=== PATIENT | female | born 1970 | race Caucasian/White ===

== ENCOUNTER 2016-10-14 15:29 | Emergency (ER) | payer OTHER ==
[2016-10-14] MEDS ORDERED: NS 0.9% 1000 ML* 1,000 ML IV ONE (16:09)
[2016-10-14 16:33] LABS: Hematocrit 42 % (35-47); Hemoglobin 13.8 g/dl (12.0-16.0); Mean Corpuscular HGB Conc 33 g/dl (31-36); Mean Corpuscular Hemoglobin 30 pg (27-31); Mean Corpuscular Volume 91 fL (80-97); Mean Platelet Volume 8 um3 (7.4-10.4); Red Blood Count 4.58 10^6/ul (4.0-5.4); Red Cell Distribution Width 14 % (10.5-15); White Blood Count 10.2 10^3/ul (3.5-10.8)
[2016-10-14 16:58] LABS: Albumin 4.2 g/dL (3.2-5.2); BUN/Creatinine Ratio 17.5 (8-20); C Reactive Protein 1.16 mg/L (< 5.00); Calcium 9.5 mg/dL (8.6-10.3); EGFR African American 65.7 (>60); EGFR Non-African American 51.1 (>60); Globulin 3.1 g/dL (2-4); Potassium 3.4 mmol/L (3.5-5.0); Total Bilirubin 0.4 mg/dL (0.2-1.0); Total Protein 7.3 g/dL (6.4-8.9)
--- NOTE | 2016-10-14 17:02 | RAD ---
Indication: Headaches. CT of the brain was performed without IV contrast. [place] ventricular structures are midline. No midline shift is noted. The extra-axial spaces are unremarkable. There is no evidence of intracranial mass or hemorrhage. Mastoid air cells and paranasal sinuses are grossly unremarkable. IMPRESSION: No intracranial mass or hemorrhage is identified.
--- NOTE | 2016-10-14 17:03 | RAD ---
Indication: Headaches and weakness. CT of the paranasal sinuses was obtained in the axial plane. Coronal and sagittal reconstructed images were obtained. The frontal sinuses are clear. Maxillary sinuses are clear. Sphenoid sinuses are clear. There is mucosal thickening and some mild opacification of the nasal turbinates and anterior ethmoid air cells. There is some obstruction of the right ostiomeatal unit. Nasal septal deviation towards the left is noted. IMPRESSION: There may be some mild chronic sinusitis of the right anterior ethmoid air cells. There is mucosal thickening of the right mid middle turbinate with obstruction of the right ostiomeatal unit. Nasal septal deviation towards the left is noted.
[2016-10-14 17:22] LABS: Magnesium 2.1 mg/dL (1.9-2.7)
[2016-10-14 17:24] LABS: Erythrocyte Sed Rate 10 mm/Hr (0-14)
[2016-10-14 17:28] LABS: Urine Bilirubin Negative (Negative); Urine Glucose Negative (Negative); Urine Nitrite Negative (Negative)
--- NOTE | 2016-10-14 17:29 | ED ---
Headache - HPI Summary HPI Summary: Pt here w/ acute onset AGOSTO w/ dizziness while at work today. 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 Feels her sx are worse as time goes on. She cannot say if dizziness is worse w/ or w/o movement - just feels horrible. Denies focal pain/weakness/numbness/tingling however feels tired/weak in general. Photosensitive and mild nausea. Has bee taking new BP meds x 1 month - started w/ HCTZ however systolics were still in 170's so added lisinopril. She' s had a few episodes of hypotension since but this feels worse than any AGOSTO or low BP she's had thus far. Also admits she's had sinus infection sx x 1+ month. Has had 2 rounds of anbx (doxycyline and levaquin). These have been completed as of 10 days ago now and no relief of sinus sx. Is scheduled to have a CT of sinuses w/ ENT soon. Denies chest pain, SOB, ab pain, vomiting, skin changes, fever, chills. - History Of Current Complaint Hx Obtained From: Patient Hx Last Menstrual Period: ~ 1999 (ablation) <Cheryl Calloway - Last Filed: 10/14/16 19:35> <Ela Oconnor - Last Filed: 10/16/16 13:21> - History Of Current Complaint Chief Complaint: EDDizziness Stated Complaint: HEADACHE Time Seen by Provider: 10/14/16 16:07 - Allergies/Home Medications Allergies/Adverse Reactions: Allergies Allergy/AdvReac Type Severity Reaction Status Date / Time Erythromycin AdvReac Abdominal Verified 05/31/14 13:10 Pain PMH/Surg Hx/FS Hx/Imm Hx Previously Healthy: No - chronic sinus issues Endocrine/Hematology History: Denies: Hx Anticoagulant Therapy, Hx Blood Disorders, Hx Diabetes, Hx Thyroid Disease, Hx Anemia, Hx Unexplained Bleeding, Hx Coagulopothy Cardiovascular History: Reports: Hx Hypertension - currently treated - HCTZ, lisinopril Denies: Hx Atrial Fibrillation, Hx Congenital Heart Disease, Hx Myocardial Infarction, Hx Pacemaker/ICD History: Denies: Hx Dialysis, Hx Renal Disease Sensory History: Denies: Hx Hearing Aid Neurological History: Reports: Hx Headaches - has had imaging in the past for AGOSTO Denies: Hx CVA, Hx Migraine Psychiatric History: Reports: Hx Panic Disorder - ANXIETY - Surgical History Surgery Procedure, Year, and Place: Cholecystectomy, 2010, [facility]. Excess Skin Removal, 2008, [facility]. Gastric Bypass, 2006, [facility]. Tubal Ligation, 1995, [facility]. Tonsillectomy, 1983, [facility] Infectious Disease History: No Infectious Disease History: Denies: Traveled Outside the [place] in Last 30 Days - Social History Occupation: Employed Full-time - nurse Alcohol Use: Rare Hx Substance Use: No Substance Use Type: Reports: None Hx Tobacco Use: No Smoking Status (MU): Never Smoked Tobacco <Cheryl Calloway - Last Filed: 10/14/16 19:35> Review of Systems Constitutional: Other - see HPI Eyes: Other - see HPI ENT: Other - see HPI Negative: Palpitations, Chest Pain Negative: Shortness Of Breath, Cough Positive: Nausea. Negative: Abdominal Pain, Vomiting, Diarrhea Positive: no symptoms reported Negative: Arthralgia, Myalgia, Edema Negative: Rash, Bruising Neurological: Other - see HPI Psychological: Normal All Other Systems Reviewed And Are Negative: Yes <Cheryl Calloway - Last Filed: 10/14/16 19:35> Physical Exam Triage Information Reviewed: Yes Vital Signs On Initial Exam: Initial Vitals Temp Pulse Resp BP Pulse Ox 97.3 F 82 16 126/80 100 10/14/16 15:42 10/14/16 15:42 10/14/16 15:42 10/14/16 15:42 10/14/16 15:42 Vital Signs Reviewed: Yes Appearance: Positive: Pain Distress - pt lying in stretcher w/ eyes closed - appears to be in pain/distress but is able to communicate clearly, calm, Obese Skin: Positive: Warm, Dry Head/Face: Positive: Normal Head/Face Inspection - Sinuses TTP Eyes: Positive: ELLA, Other: - photosensitive - sclera appears injected however pt has difficulty keeping eyes open d/t pain ENT: Positive: Hearing grossly normal, Pharynx normal, Nasal congestion, TMs normal. Negative: Nasal drainage Dental: Negative: Dental Fracture @, Abscess @ Neck: Positive: Supple, Nontender, No Lymphadenopathy Respiratory/Lung Sounds: Positive: Clear to Auscultation, Breath Sounds Present. Negative: Rales, Rhonchi, Stridor, Wheezes Cardiovascular: Positive: Normal, RRR, Pulses are Symmetrical in both Upper and Lower Extremities, S1, S2. Negative: Murmur, Rub, Leg Edema Left, Leg Edema Right Abdomen Description: Positive: Nontender, Soft Bowel Sounds: Positive: Present Musculoskeletal: Positive: Normal, Strength/ROM Intact Neurological: Positive: Normal, Sensory/Motor Intact, Alert, Oriented to Person Place, Time, CN Intact II-III, Facial Symmetry, Speech Normal. Negative: Pronator Drift Present Psychiatric: Positive: Normal - [place] Coma Scale Coma Scale Total: 15 <Cheryl Calloway - Last Filed: 10/14/16 19:35> Vital Signs On Initial Exam: Initial Vitals Temp Pulse Resp BP Pulse Ox 97.3 F 82 16 126/80 100 10/14/16 15:42 10/14/16 15:42 10/14/16 15:42 10/14/16 15:42 10/14/16 15:42 <Ela Oconnor - Last Filed: 10/16/16 13:21> Diagnostics - Vital Signs Vital Signs Temp Pulse Resp BP Pulse Ox 10/14/16 17:18 93 150/93 10/14/16 17:17 88 141/80 10/14/16 17:12 12 150/90 10/14/16 17:10 10 141/80 10/14/16 17:00 80 12 99 10/14/16 16:30 93 127/89 10/14/16 16:29 81 122/78 10/14/16 16:27 122/78 10/14/16 16:26 81 12 100 10/14/16 16:00 80 126/94 98 10/14/16 15:47 80 100 10/14/16 15:45 126/80 10/14/16 15:42 97.3 F 82 16 126/80 100 - Laboratory Lab Results: Lab Results 10/14/16 10/14/16 10/14/16 Range/Units 16:17 16:17 16:17 WBC 10.2 (3.5-10.8) 10^3/ul RBC 4.58 (4.0-5.4) 10^6/ul Hgb 13.8 (12.0-16.0) g/dl Hct 42 (35-47) % MCV 91 (80-97) fL MCH 30 (27-31) pg MCHC 33 (31-36) g/dl RDW 14 (10.5-15) % Plt Count 262 (150-450) 10^3/ul MPV 8 (7.4-10.4) um3 Neut % (Auto) 65.1 (38-83) % Lymph % (Auto) 26.2 (25-47) % Moody % (Auto) 6.7 (1-9) % Eos % (Auto) 0.9 (0-6) % Baso % (Auto) 1.1 (0-2) % Absolute Neuts (auto) 6.6 (1.5-7.7) 10^3/ul Absolute Lymphs (auto) 2.7 (1.0-4.8) 10^3/ul Absolute Monos (auto) 0.7 (0-0.8) 10^3/ul Absolute Eos (auto) 0.1 (0-0.6) 10^3/ul Absolute Basos (auto) 0.1 (0-0.2) 10^3/ul Absolute Nucleated RBC 0.01 10^3/ul Nucleated RBC % 0 ESR Pending INR (Anticoag Therapy) 0.95 (0.89-1.11) APTT 24.7 L (26.0-36.3) seconds Sodium 133 (133-145) mmol/L Potassium 3.4 L (3.5-5.0) mmol/L Chloride 95 L (101-111) mmol/L Carbon Dioxide 29 (22-32) mmol/L Anion Gap 9 (2-11) mmol/L BUN 20 (6-24) mg/dL Creatinine 1.14 H (0.51-0.95) mg/dL Est GFR ( Amer) 65.7 (>60) Est GFR (Non-Af Amer) 51.1 (>60) BUN/Creatinine Ratio 17.5 (8-20) Glucose 90 (70-100) mg/dL Lactic Acid (0.5-2.0) mmol/L Calcium 9.5 (8.6-10.3) mg/dL Magnesium 2.1 (1.9-2.7) mg/dL Total Bilirubin 0.40 (0.2-1.0) mg/dL AST 21 (13-39) U/L ALT 19 (7-52) U/L Alkaline Phosphatase 73 (34-104) U/L C-Reactive Protein 1.16 (< 5.00) mg/L Total Protein 7.3 (6.4-8.9) g/dL Albumin 4.2 (3.2-5.2) g/dL Globulin 3.1 (2-4) g/dL Albumin/Globulin Ratio 1.4 (1-3) // Range/Units 16:17 WBC (3.5-10.8) 10^3/ul RBC (4.0-5.4) 10^6/ul Hgb (12.0-16.0) g/dl Hct (35-47) % MCV (80-97) fL MCH (27-31) pg MCHC (31-36) g/dl RDW (10.5-15) % Plt Count (150-450) 10^3/ul MPV (7.4-10.4) um3 Neut % (Auto) (38-83) % Lymph % (Auto) (25-47) % Moody % (Auto) (1-9) % Eos % (Auto) (0-6) % Baso % (Auto) (0-2) % Absolute Neuts (auto) (1.5-7.7) 10^3/ul Absolute Lymphs (auto) (1.0-4.8) 10^3/ul Absolute Monos (auto) (0-0.8) 10^3/ul Absolute Eos (auto) (0-0.6) 10^3/ul Absolute Basos (auto) (0-0.2) 10^3/ul Absolute Nucleated RBC 10^3/ul Nucleated RBC % ESR INR (Anticoag Therapy) (0.89-1.11) APTT (26.0-36.3) seconds Sodium (133-145) mmol/L Potassium (3.5-5.0) mmol/L Chloride (101-111) mmol/L Carbon Dioxide (22-32) mmol/L Anion Gap (2-11) mmol/L BUN (6-24) mg/dL Creatinine (0.51-0.95) mg/dL Est GFR ( Amer) (>60) Est GFR (Non-Af Amer) (>60) BUN/Creatinine Ratio (8-20) Glucose (70-100) mg/dL Lactic Acid 1.1 (0.5-2.0) mmol/L Calcium (8.6-10.3) mg/dL Magnesium (1.9-2.7) mg/dL Total Bilirubin (0.2-1.0) mg/dL AST (13-39) U/L ALT (7-52) U/L Alkaline Phosphatase (34-104) U/L C-Reactive Protein (< 5.00) mg/L Total Protein (6.4-8.9) g/dL Albumin (3.2-5.2) g/dL Globulin (2-4) g/dL Albumin/Globulin Ratio (1-3) Result Diagrams: 10/14/16 16:17 10/14/16 16:17 Lab Statement: Any lab studies that have been ordered have been reviewed, and results considered in the medical decision making process. <Cheryl Calloway - Last Filed: 10/14/16 19:35> - Vital Signs Vital Signs Temp Pulse Resp BP Pulse Ox 10/14/16 20:00 98 F 10/14/16 19:30 84 14 137/84 100 10/14/16 19:00 83 13 135/80 97 10/14/16 18:30 88 12 126/77 95 10/14/16 18:10 97.7 F 10/14/16 18:00 90 18 129/75 95 10/14/16 17:30 82 13 150/81 100 10/14/16 17:18 93 150/93 10/14/16 17:17 88 141/80 10/14/16 17:12 12 150/90 10/14/16 17:10 10 141/80 10/14/16 17:00 80 12 99 10/14/16 16:30 93 127/89 10/14/16 16:29 81 122/78 10/14/16 16:27 122/78 10/14/16 16:26 81 12 100 10/14/16 16:00 80 126/94 98 10/14/16 15:47 80 100 10/14/16 15:45 126/80 10/14/16 15:42 97.3 F 82 16 126/80 100 - Laboratory Lab Results: Lab Results 10/14/16 10/14/16 10/14/16 Range/Units 16:17 16:17 16:17 WBC 10.2 (3.5-10.8) 10^3/ul RBC 4.58 (4.0-5.4) 10^6/ul Hgb 13.8 (12.0-16.0) g/dl Hct 42 (35-47) % MCV 91 (80-97) fL MCH 30 (27-31) pg MCHC 33 (31-36) g/dl RDW 14 (10.5-15) % Plt Count 262 (150-450) 10^3/ul MPV 8 (7.4-10.4) um3 Neut % (Auto) 65.1 (38-83) % Lymph % (Auto) 26.2 (25-47) % Moody % (Auto) 6.7 (1-9) % Eos % (Auto) 0.9 (0-6) % Baso % (Auto) 1.1 (0-2) % Absolute Neuts (auto) 6.6 (1.5-7.7) 10^3/ul Absolute Lymphs (auto) 2.7 (1.0-4.8) 10^3/ul Absolute Monos (auto) 0.7 (0-0.8) 10^3/ul Absolute Eos (auto) 0.1 (0-0.6) 10^3/ul Absolute Basos (auto) 0.1 (0-0.2) 10^3/ul Absolute Nucleated RBC 0.01 10^3/ul Nucleated RBC % 0 ESR 10 (0-14) mm/Hr INR (Anticoag Therapy) 0.95 (0.89-1.11) APTT 24.7 L (26.0-36.3) seconds Sodium 133 (133-145) mmol/L Potassium 3.4 L (3.5-5.0) mmol/L Chloride 95 L (101-111) mmol/L Carbon Dioxide 29 (22-32) mmol/L Anion Gap 9 (2-11) mmol/L BUN 20 (6-24) mg/dL Creatinine 1.14 H (0.51-0.95) mg/dL Est GFR ( Amer) 65.7 (>60) Est GFR (Non-Af Amer) 51.1 (>60) BUN/Creatinine Ratio 17.5 (8-20) Glucose 90 (70-100) mg/dL Lactic Acid (0.5-2.0) mmol/L Calcium 9.5 (8.6-10.3) mg/dL Magnesium 2.1 (1.9-2.7) mg/dL Total Bilirubin 0.40 (0.2-1.0) mg/dL AST 21 (13-39) U/L ALT 19 (7-52) U/L Alkaline Phosphatase 73 (34-104) U/L C-Reactive Protein 1.16 (< 5.00) mg/L Total Protein 7.3 (6.4-8.9) g/dL Albumin 4.2 (3.2-5.2) g/dL Globulin 3.1 (2-4) g/dL Albumin/Globulin Ratio 1.4 (1-3) TSH 8.74 H (0.34-5.60) mcIU/mL Urine Color Urine Appearance Urine pH (5-9) Ur Specific [place] (1.010-1.030) Urine Protein (Negative) Urine Ketones (Negative) Urine Blood (Negative) Urine Nitrate (Negative) Urine Bilirubin (Negative) Urine Urobilinogen (Negative) Ur Leukocyte Esterase (Negative) Urine Glucose (Negative) 10/14/16 10/14/16 Range/Units 16:17 17:15 WBC (3.5-10.8) 10^3/ul RBC (4.0-5.4) 10^6/ul Hgb (12.0-16.0) g/dl Hct (35-47) % MCV (80-97) fL MCH (27-31) pg MCHC (31-36) g/dl RDW (10.5-15) % Plt Count (150-450) 10^3/ul MPV (7.4-10.4) um3 Neut % (Auto) (38-83) % Lymph % (Auto) (25-47) % Moody % (Auto) (1-9) % Eos % (Auto) (0-6) % Baso % (Auto) (0-2) % Absolute Neuts (auto) (1.5-7.7) 10^3/ul Absolute Lymphs (auto) (1.0-4.8) 10^3/ul Absolute Monos (auto) (0-0.8) 10^3/ul Absolute Eos (auto) (0-0.6) 10^3/ul Absolute Basos (auto) (0-0.2) 10^3/ul Absolute Nucleated RBC 10^3/ul Nucleated RBC % ESR (0-14) mm/Hr INR (Anticoag Therapy) (0.89-1.11) APTT (26.0-36.3) seconds Sodium (133-145) mmol/L Potassium (3.5-5.0) mmol/L Chloride (101-111) mmol/L Carbon Dioxide (22-32) mmol/L Anion Gap (2-11) mmol/L BUN (6-24) mg/dL Creatinine (0.51-0.95) mg/dL Est GFR ( Amer) (>60) Est GFR (Non-Af Amer) (>60) BUN/Creatinine Ratio (8-20) Glucose (70-100) mg/dL Lactic Acid 1.1 (0.5-2.0) mmol/L Calcium (8.6-10.3) mg/dL Magnesium (1.9-2.7) mg/dL Total Bilirubin (0.2-1.0) mg/dL AST (13-39) U/L ALT (7-52) U/L Alkaline Phosphatase (34-104) U/L C-Reactive Protein (< 5.00) mg/L Total Protein (6.4-8.9) g/dL Albumin (3.2-5.2) g/dL Globulin (2-4) g/dL Albumin/Globulin Ratio (1-3) TSH (0.34-5.60) mcIU/mL Urine Color Yellow Urine Appearance Clear Urine pH 5.0 (5-9) Ur Specific [place] 1.009 L (1.010-1.030) Urine Protein Negative (Negative) Urine Ketones Negative (Negative) Urine Blood Negative (Negative) Urine Nitrate Negative (Negative) Urine Bilirubin Negative (Negative) Urine Urobilinogen Negative (Negative) Ur Leukocyte Esterase Negative (Negative) Urine Glucose Negative (Negative) Result Diagrams: 10/14/16 16:17 10/14/16 16:17 Lab Statement: Any lab studies that have been ordered have been reviewed, and results considered in the medical decision making process. <Ela Oconnor - Last Filed: 10/16/16 13:21> Re-Evaluation - Re-Evaluation First Eval Change: Improved - AGOSTO improving some lying in dark room w/ IV fluids - reports she's having urge to urinate Second Eval Change: Improved - AGOSTO, dizziness, weakness improved s/p IV fluids and migraine cocktail - pt able to ambulate independently and less sensitive to light <Cheryl Calloway - Last Filed: 10/14/16 19:35> Headache Course/Dx - Course Course Of Treatment: Pt presents w/ AGOSTO, dizziness and near syncope earlier today. IV fluids initially provided for suspicion of relative hypotension as she 's typically in 170's systolic and presents today in 120's systolic. After head CT, labs and vitals unremarkable for life threatening pathology, she was provided w/ migraine medications and sx improved even more. Consulted w/ neurologist who feels pt is safe for d/c. - Physician Notifications Discussed Care Of Patient With: Dr. Womack <Cheryl Calloway - Last Filed: 10/14/16 19:35> <Ela Oconnor - Last Filed: 10/16/16 13:21> - Diagnoses Provider Diagnoses: Migraine, Dehydration, Hypotension Discharge <Cheryl Calloway - Last Filed: 10/14/16 19:35> <Ela Oconnor - Last Filed: 10/16/16 13:21> - Discharge Plan Condition: Stable Disposition: HOME Patient Education Materials: Dehydration (ED), Hypothyroidism (ED), Hypotension (ED) Forms: *Work Release Referrals: [facility] [Outside] Additional Instructions: It is suspected that your symptoms today were the result of dehydration as well as lower than normal blood pressure, triggering headache, dizziness and near syncope. Stay hydrated and avoid your HCTZ until seen by PCP. It is important that you follow-up with your PCP in the next 1-2 days to discuss your medications, specifically your blood pressure medications in conjunction with pain medications. *If you develop return of headache, dizziness, syncope, return to ED Also your thyroid lab was found to be abnormal, indicating you may have hypothyroidism. This needs to be followed up by your PCP in the next 1-2 days. *If you develop chest pain, shortness of breath, acute swelling, high fever, persistent sweating, shaking, excessive diarrhea return to ED Attestations User Type: Provider - I was available for consult. This patient was seen by the advanced practice provider. The patient was not presented to, seen by, or examined by me. - KRUPA <Ela Oconnor - Last Filed: 10/16/16 13:21>
[2016-10-14] MEDS ORDERED: Metoclopramide IV* 5 MG/ML 2 ML VIAL IV ONE (17:41)
[2016-10-14] MEDS ORDERED: Ketorolac INJ* 30 MG/ML 1 ML VIAL IV PUSH ONE (17:41)
[2016-10-14] MEDS ORDERED: diPHENhydraMINE IV* 50 MG/ML 1 ml VIAL (BENADRYL) IV ONE (17:41)
--- NOTE | 2016-10-14 19:31 | CONSULT ---
Consult Consult: 10/14/16 neurology consult 46 yo RHF w/ HTN (recently diagnosed), migraine (1/month, headache, nausea and floaters), sciatica (conservatively managed, uses adonay 600/900mg, tramadol prn) , gastric bypass (remote), presenting with dizziness and likely syncope. She has had sinus congestion and fullness for the past several weeks, without drainage, and was treated by her PMD with anitbiotics for suspected sinusitis. She was found to be hypertensive in the past month, with SBPs to the 170s, and started on a BP med. In that context, she was at work today, felt dizzy and lightheaded (had an episode of remote syncope; thought symptoms were similar), sat down. Her colleagues told her she looked ill; she was nauseated and dizzy; apparently she passed out while seated (she does not recall); her BP was 100s/ 60s at work. She has since been hydrated and feels better. She had no migraine or focal neuro symptoms. 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 Plantar responses are equivocal to flexor Coordination: finger to nose is accurate Gait: catutious but normal casual gait; not formally tested, but ambulated to bathroom by nurse after my eval Serologies: CBC, ESR/crp, coags, LFT are all normal or negative; cr 1.15, Na 133, TSH P Priors: aic ok Imaging: Head CT reviewed and negative (11/03 brain mri (done for headaches) neg per report) 07/06 lumbar mri neg per report 06/05 cxr neg Impression: 46 yo RHF w/ HTN (recently diagnosed), migraine (infrequent), sciatica ( conservatively managed), gastric bypass (remote), presenting with dizziness and likely syncope in setting of sinus congestion, possible dehydration, recent anti hypertensive initiation. Her orthostatics were negative but may reflect rebound HTN, post hydration, etc. Her neuro exam and GEOGR[employer] INFORMATION [employer] DIRECTOR imaging are non localizing. She is symptomatically improved and from a neuro standpoint can be discharged home.
[2016-10-14 19:43] LABS: TSH (Thyroid Stimulating Horm) 8.74 mcIU/mL (0.34-5.60)
[2016-10-14 19:48] VITALS: BP 137/84
== END 2016-10-14 20:00 | disposition home or self-care (01) ==
LOC: ED 15:29
DX: G43.909 Migraine, unspecified, not intractable, without status migrainosus (principal); E86.0 Dehydration; I95.9 Hypotension, unspecified; R51 Headache; R42 Dizziness and giddiness; R11.0 Nausea
CPT/HCPCS: 36415; 70450; 70486; 80053; 81003; 83605; 83735; 84443; 85025; 85610; 85652; 85730; 86140; 93005; 96374; 96375; 99284; J1200; J1885; J2765

== ENCOUNTER 2017-01-05 16:56 | Emergency (ER) | payer OTHER ==
--- NOTE | 2017-01-05 18:36 | UC ---
UC General HPI - HPI Summary HPI Summary: The patient comes in today for: 1. Sore throat, headache, body aches, fatigue: Onset: 2 days ago. Palliative/provocative: swallowing worsens her sore throat. Quality: Ache Region: Headache: frontal and occipital. Severity: 8/10 Time: Constant. Associated symptoms: Fevers: None. Vomiting: None. Diarrhea: 3 yesterday. 1 today. 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 Students have been getting strep throat and mononucleosis. She states that she has never had mononucleosis. Urine output: She states that she has not been taking food, and it trying to drink--but she urinated at 3:30 PM and did not inspect the color. Nausea: None. * - History of Current Complaint Chief Complaint: UCGeneralIllness Stated Complaint: LOW BLOOD PRESSURE Time Seen by Provider: 01/05/17 18:29 Hx Obtained From: Patient, Family/News Clipping Cutter - Allergy/Home Medications Allergies/Adverse Reactions: Allergies Allergy/AdvReac Type Severity Reaction Status Date / Time Erythromycin Allergy Abdominal Verified 01/05/17 17:10 Pain Cefuroxime [From Ceftin] AdvReac GI Upset Verified 01/05/17 17:10 Home Medications: Home Medications ALPRAZolam TAB* [Xanax TAB*] 1 tab PO TID PRN 01/05/17 [History Confirmed ] Gabapentin CAP(*) [Neurontin 300 CAP(*)] 2 tab PO SEE INSTRUCTIONS 01/05/17 [ History Confirmed 01/05/17] Hydrochlorothiazide TAB* [Hydrodiuril TAB*] 10 mg PO DAILY 01/05/17 [History Confirmed 01/05/17] Lisinopril [Zestril 5 MG-] 1 tab PO DAILY 01/05/17 [History Confirmed 01/05/17] PMH/Surg Hx/FS Hx/Imm Hx Previously Healthy: No Endocrine History Of: Denies: Diabetes, Thyroid Disease, Hyperthyroidism, Hypothyroidism, Dyslipidemia Cardiovascular History Of: Reports: Hypertension Denies: Cardiac Disorders, Pacemaker/ICD, Myocardial Infarction, Congestive Heart Failure, Atrial Fibrillation, Deep Vein Thrombosis, Bleeding Disorders Respiratory History Of: Denies: COPD, Asthma, Bronchitis, Pneumonia, Pulmonary Embolism GI/ History Of: Denies: Gastroesophageal Reflux, Ulcer, Gastrointestinal Bleed, Gall Bladder Disease, Kidney Stones, Diverticulitis, Renal Disease, Urosepsis Neurological History Of: Denies: TIA, CVA, Dementia, Seizures, Migraine Psychological History Of: Denies: Anxiety, Depression, Bipolar Disorder, Schizophrenia, Post Traumatic Stress Disorder Cancer History Of: Denies: Lung Cancer, Colorectal Cancer, Breast Cancer, Prostate Cancer, Cervical Cancer Other History Of: Negative For: HIV, Hepatitis B, Hepatitis C, Anticoagulant Therapy - Surgical History Surgical History: Yes Surgery Procedure, Year, and Place: Cholecystectomy, 2010, [facility]. Excess Skin Removal, 2008, [facility]. Gastric Bypass, 2006, [facility]. Tubal Ligation, 1995, [facility]. Tonsillectomy, 1983, [facility]. Sinus Surgery 11/2016 [facility] - Family History Known Family History: Positive: Cardiac Disease Negative: Hypertension - Social History Occupation: Employed Full-time Alcohol Use: Rare Substance Use Type: None Smoking Status (MU): Never Smoked Tobacco - Immunization History Most Recent Influenza Vaccination: Not this season Review of Systems Skin: Negative Eyes: Negative ENT: Sore Throat Respiratory: Negative Cardiovascular: Negative Gastrointestinal: Negative Genitourinary: Negative All Other Systems Reviewed And Are Negative: Yes Physical Exam Triage Information Reviewed: Yes Appearance: Well-Appearing, No Pain Distress, Well-Nourished Vital Signs: Initial Vital Signs Temp 99.6 F 01/05/17 17:01 Pulse 112 01/05/17 17:01 Resp 18 01/05/17 17:01 BP 112/65 01/05/17 17:01 Pulse Ox 99 01/05/17 17:01 Vital Signs Reviewed: Yes Eyes: Positive: Conjunctiva Clear. Negative: Discharge ENT: Positive: Normal ENT inspection, Pharynx normal, Other:. Negative: Pharyngeal erythema, Nasal congestion, Nasal drainage, TM bulging, TM dull, TM red, Tonsillar swelling, Tonsillar exudate Dental: Negative: Gross Decay/Caries @, Dental Fracture @ Neck: Positive: Supple, Nontender, No Lymphadenopathy - No enlarged lymph nodes , but the ones at the angle of the jaw were tender.. Negative: Nuchal Rigidity Respiratory: Positive: Lungs clear, No respiratory distress, No accessory muscle use. Negative: Crackles, Wheezing Cardiovascular: Positive: RRR, No Murmur Abdomen Description: Positive: Nontender, No Organomegaly, Soft. Negative: Distended, Guarding Musculoskeletal: Positive: Strength Intact, ROM Intact, No Edema Neurological: Positive: Alert, Muscle Tone Normal Psychological: Positive: Age Appropriate Behavior, Consolable Skin: Negative: rashes, breakdown Diagnostics - Laboratory Diagnostic Studies Completed/Ordered: Strep test: Positive. Monospot: pending. Urine screen: Specific gravity: 1.005. WBC: (-). Nitrite: (-). Blood: (-) . Glucose: (Trace) had D5NS. Protein: (trace). Course/Dx - Course Course Of Treatment: Patient not looking much better after 1 liter of D5NS and vitals are still abnormal Pulse is slightly less tachycardic, (100 bpm) and the blood pressure is still low (100/52). Her urine screen shows specific gravity of 1.005. Chart review shows that her blood pressure normally runs in the 120's/80's. However, talking to the patient, she states that she is feeling 50% better and does not want to go to the ER. She states that her blood pressure does "bounce" around. She states that her is with her and if she does not continue to do well, she will go to the ER. Will start Pen VK tonight. She shows me her blood pressure readings done after the ER visit and after her physician started BP medication with BP's running like in our office. - Differential Dx - Multi-Symptom Provider Diagnoses: Viral syndrome. Strep pharyngitis Discharge - Discharge Plan Condition: Stable Disposition: AGAINST MEDICAL ADVICE Forms: *Work Release Referrals: Lu Santos MD [Primary Care Provider] - As Soon As Possible (If you are not going to the ER, please see your primary care provider tomorrow or the next day. If you get worse, please go to the ER. )
[2017-01-05] MEDS ORDERED: D5NS 0.9% 1000 ML BAG* 1,000 ML IV SCH (19:00)
[2017-01-05] MEDS ORDERED: Acetaminophen TAB* 325 MG PO ONE (19:20)
[2017-01-05 20:12] VITALS: BP 100/52
[2017-01-05] MEDS ORDERED: Penicillin VK LIQ* 250 MG/5 ML BTL PO ONE (21:03)
== END 2017-01-05 21:26 | disposition left against medical advice (07) ==
LOC: UCCORT 16:56
DX: B34.9 Viral infection, unspecified (principal); J02.0 Streptococcal pharyngitis; Z88.1 Allergy status to other antibiotic agents; I10 Essential (primary) hypertension; Z90.49 Acquired absence of other specified parts of digestive tract; Z98.84 Bariatric surgery status
CPT/HCPCS: 81003; 87651; 96360; 99213; A9270-GY; G0463